=== PATIENT | female | born 1980 | race African-American/Black ===

== ENCOUNTER 2016-12-19 12:02 | Emergency (ER) | payer OTHER ==
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
[~2016-12-19 12:02] MED LIST: FIORICET W/CODE1 CAP PO; FLUOXETINE HCL40 M1 PO; LORATADINE PO; LORTAB 5-325 M1 EACH PO; TOPAMAX50 MG PO; VICODIN PO; VOLTAREN75 MG PO; ZEBETA5 M1 PO; ZITHROMAX PO
== END 2016-12-19 12:38 | disposition home or self-care (01) ==
LOC: CED 12:02
DX: S46.911A Strain of unspecified muscle, fascia and tendon at shoulder and upper arm level, right arm, initial encounter (principal); S29.011A Strain of muscle and tendon of front wall of thorax, initial encounter; S00.83XA Contusion of other part of head, initial encounter; Z88.5 Allergy status to narcotic agent; F17.210 Nicotine dependence, cigarettes, uncomplicated; Y04.0XXA Assault by unarmed brawl or fight, initial encounter; Y92.9 Unspecified place or not applicable; F41.9 Anxiety disorder, unspecified
CPT/HCPCS: 70450; 70486; 71101; 73060; 73090; 73130; 73552; 73590; 96372; 99284; J1885

== ENCOUNTER 2017-02-04 04:54 | Emergency (ER) | payer OTHER ==
[2017-02-04 06:53] LABS: BASOPHIL% 0.5 % (0-2.5); EOSINOPHIL# 0.2 X10e3 (0-0.7); EOSINOPHIL% 2.4 % (0.0-7.0); HEMATOCRIT 40.5 % (35.0-45.0); LYMPHOCYTE# 2.2 X10e3 (1.0-3.5); LYMPHOCYTE% 24.1 % (17.0-45.0); MEAN CELL VOLUME 83.1 FL (83-96); MEAN CORPUSCULAR HEMOGLOBIN 26.6 PG (28-34); MONOCYTE# 0.5 X10e3 (0-1.0); MONOCYTE% 5.9 % (3.0-12.0); NEUTROPHIL# 6.1 X10e3 (1.5-7.1); NEUTROPHIL% 67.1 % (40-75); PLATELET COUNT 253 X10e3 (140-420); RED BLOOD COUNT 4.88 X10e (3.90-5.30); RED CELL DISTRIBUTION WIDTH 15.3 % (11.0-15.5); WHITE BLOOD COUNT 9.1 X10e3 (4.0-10.5)
[2017-02-04 06:55] LABS: DIFF IND NO
[2017-02-04 07:18] LABS: BUN/CREATININE RATIO 11.25; CALCIUM SERUM 8.9 mg/dL (8.4-10.2); CREATININE SERUM 0.8 mg/dL (0.6-1.4); GLOM FILT RATE Estimated 109.3 mL/min (>60); POTASSIUM 3.8 mmol/L (3.5-5.1)
== END 2017-02-04 08:10 | disposition home or self-care (01) ==
LOC: CED 04:54
PROVIDERS: Emergency Medicine
DX: R51 Headache (principal); F17.210 Nicotine dependence, cigarettes, uncomplicated; Z90.710 Acquired absence of both cervix and uterus; Z90.49 Acquired absence of other specified parts of digestive tract; Z88.5 Allergy status to narcotic agent
CPT/HCPCS: 36415; 80048; 85025; 94640; 96361; 96374; 96375; 99284; J0780; J1100; J1200; J1885